=== PATIENT | female | born 1945 | race Caucasian/White ===

== ENCOUNTER 2018-07-22 19:03 | Emergency (ER) | payer SELFPAY, OTHER | END 2018-07-23 01:29 | disposition left against medical advice (07) | LOC: FTE 19:03 | DX: Z53.21 Procedure and treatment not carried out due to patient leaving prior to being seen by health care provider (principal) ==

== ENCOUNTER 2018-11-22 19:20 | Observation (INO) | payer OTHER ==
[2018-11-22] MEDS: HYDROCODONE/APAP (5/325) TAB PO (21:13)
[2018-11-22] MEDS: ONDANSETRON (ODT) 4 MG TAB ODT (21:13)
[2018-11-22 22:23] LABS: ADD MAN DIFF? NO
[2018-11-22 22:27] LABS: BASOPHILS % 0.2 % (0.0-2.0); EOSINOPHILS % 0.1 % (0.0-7.0); HEMATOCRIT 31.4 % (37.0-47.0); HEMOGLOBIN 9.9 g/dl (12.0-16.0); LYMPHOCYTES # 1.2 10^3/ul (0.8-2.9); MEAN CORPUSCULAR HEMOGLOBIN 26.4 pg (29.0-33.0); MEAN CORPUSCULAR HGB CONC 31.5 g/dl (32.0-37.0); MEAN CORPUSCULAR VOLUME 83.7 fl (82.0-101.0); MEAN PLATELET VOLUME 11.5 fl (7.4-10.4); MONOCYTE # 0.7 10^3/ul (0.3-0.9); MONOCYTES % 8.3 % (0.0-11.0); NEUTROPHIL # 6.4 10^3/ul (1.6-7.5); NEUTROPHILS % 76.9 % (39.0-77.0); PLATELET COUNT 134 10^3/UL (140-415); RED BLOOD COUNT 3.75 10^6/ul (4.20-5.40); RED CELL DISTRIBUTION WIDTH 12.8 % (11.5-14.5)
[2018-11-22 22:27] LABS: WHITE BLOOD COUNT 8.4 10^3/ul (4.8-10.8)
[2018-11-22] MEDS: morphine 4 MG/ML VIAL IV (22:44)
[2018-11-22 22:48] LABS: INR 0.95; PARTIAL THROMBOPLASTIN TIME 28.3 Sec (23.0-35.0); PROTIME 12.8 Sec (11.9-14.9)
[2018-11-22 23:00] LABS: ANION GAP 7 (5-13); BLOOD UREA NITROGEN 23 mg/dl (7-20); CALCIUM 9.8 mg/dl (8.4-10.2); CARBON DIOXIDE 25 mmol/L (21-31); CHLORIDE 105 mmol/L (97-110); CREATININE 0.92 mg/dl (0.44-1.00); GLUCOSE 120 mg/dl (70-220); POTASSIUM 5.1 mmol/L (3.5-5.1); SODIUM 137 mmol/L (135-144)
[2018-11-22 23:11] LABS: TROPONIN-I < 0.012 ng/ml (0.000-0.120)
[2018-11-22] MEDS ORDERED: ONDANSETRON 4 MG INJ IV (23:30)
[2018-11-22] MEDS ORDERED: ACETAMINOPHEN 325 MG TAB PO (23:30)
[2018-11-23] MEDS ORDERED: ACETAMINOPHEN 325 MG TAB PO (01:30)
[2018-11-23] MEDS: SOD CHLORIDE 0.9% 1,000 ML IV (03:54)
[2018-11-23] MEDS: morphine 2 MG INJ IV ×3 (03:54→11:32)
[2018-11-23] MEDS: ONDANSETRON 4 MG INJ IV ×2 (03:54→11:31)
[2018-11-23] MEDS: LOSARTAN 50 MG TAB PO (07:37)
[2018-11-23] MEDS: ASPIRIN (EC) 81 MG TAB PO (10:15)
== END 2018-11-23 14:04 | disposition home or self-care (01) ==
LOC: 2NE 23:16 → E/R 19:20
DX: S42.252A Displaced fracture of greater tuberosity of left humerus, initial encounter for closed fracture (principal); S42.212A Unspecified displaced fracture of surgical neck of left humerus, initial encounter for closed fracture; I10 Essential (primary) hypertension; R51 Headache; W01.0XXA Fall on same level from slipping, tripping and stumbling without subsequent striking against object, initial encounter; Y92.009 Unspecified place in unspecified non-institutional (private) residence as the place of occurrence of the external cause
CPT/HCPCS: 70450; 70486; 71045; 72125; 73030; 73060; 73090; 80048; 84484; 85025; 85610; 85730; 93005; 96374; 99285-25

== ENCOUNTER 2018-11-25 16:27 | Emergency (ER) | payer OTHER | END 2018-11-25 16:51 | disposition home or self-care (01) | LOC: E/R 16:51 → FTE 16:27 | DX: S42.202D Unspecified fracture of upper end of left humerus, subsequent encounter for fracture with routine healing (principal); I10 Essential (primary) hypertension; E11.9 Type 2 diabetes mellitus without complications; X58.XXXD Exposure to other specified factors, subsequent encounter | CPT/HCPCS: 99282; Z7502 ==